=== PATIENT | female | born 1965 ===

== ENCOUNTER 2023-10-27 08:22 | Emergency (ER) | payer OTHER, SELFPAY ==
[2023-10-27] VITALS (7 sets, daily range): BP systolic 101–134; BP diastolic 47–81; PULSE 80; O2SAT 97; BMI 41.3
--- NOTE | 2023-10-27 09:06 | EDRN ---
KATIE Knight was at bedside. at 09:01 pt had run of tachycardia, narrow complex.
--- NOTE | 2023-10-27 09:06 | ED.GENMED ---
History of Present Illness
General
Chief Complaint: Dizziness
Source: patient
Time Seen by Provider: 10/27/23 08:48
History of Present Illness
History of Present Illness:
58-year-old female presents with intermittent episodes of dizziness starting 2 weeks ago. She notes a spinning sensation. She denies any significant headache or neck pain. No double vision blurry vision loss of vision. She denies any unilateral
numbness or weakness but does note bilateral arms feel weak at times. She occasionally notes a fast heart rate. No leg swelling or calf pain. She feels as though the dizziness is made worse with change of positions but does tend to fade away if
she stays still. Occasionally happens while driving. No fevers rashes or tick bites.
Past History
Past History
ED Past Medical History: GERD
Social History
Tobacco: Non-smoker
Alcohol: None
Drug: None
Personal:
Living: with family
Phy Exam
Physical Exam
Physical Exam:
General: Well-appearing female no acute respiratory distress
HEENT: Normocephalic atraumatic
Heart: Regular rate and rhythm no murmurs please note, during the exam there is a approximately 10 seconds. Of a narrow complex regular tachycardia. This self resolved
Lungs: Clear no wheeze or rales
Extremities: No cyanosis or edema
Neurologic: Alert and oriented no facial asymmetry or slurred speech extract motions are intact finger-nose intact. Hallpike maneuver does reproduce his dizziness more so to the right side this quickly fades after about 3 seconds.
Scores
[id number] Score for Afib Stroke Risk
Age in Years (65=0, 65-74=1, >/=75=2): <65
Sex (Female=+1): Female
Congestive Heart Failure History (Yes=+1): No
Hypertension History (Yes=+1): No
Stroke/TIA/Thromboembolism History (Yes=+2): No
Vascular Disease History (Yes=+1): No
Diabetes Mellitus (Yes=+1): No
Score: 1
Anticoagulation Recommendations: Consider anticoagulation (as validated in nonvalvular fib)
Course
Orders/Labs/Results
Orders:
Orders
10/27/23 08:24
ECG [Electrocardiogram (*1)] Urgent
Reason for Study: Vertigo / Dizzy
EKG- Treatment ONCE
10/27/23 09:06
CT Head W/o Iv Contrast Urgent
Comment:
Reason For Exam: dizziness
10/27/23 09:19
Complete Blood Count/With Diff Urgent
Comprehensive Metabolic Panel Urgent
TSH Reflex To Free T4 Urgent
Troponin I Urgent
10/27/23 11:17
PT Consult [Pt Eval And Treat] Urgent
Treatment: vestibular eval
Activity Level: Ambulate
10/27/23 12:28
Meclizine [Antivert] 25 mg PO NOW STA
Abnormal Lab Results
10/27/23
09:19
MPV 11.4 H fL
(7.4-10.4)
Absolute Neuts (auto) 7.0 H 10^3/uL
(1.4-6.5)
Lymphocytes % 19.2 L %
(20.5-51.1)
BUN 19 H mg/dl
(7-17)
10/27/23 09:19
10/27/23 09:19
Vital Signs
Initial and Last Documented VS:
Initial Vital Signs
Temp Pulse Resp BP Pulse Ox
98.5 F 76 18 134/80 100
10/27/23 08:23 10/27/23 08:23 10/27/23 08:23 10/27/23 08:23 10/27/23 08:23
Last Documented Vital Signs
Temp Pulse Resp BP Pulse Ox
98.5 F 62 14 116/81 98
10/27/23 08:23 10/27/23 14:00 10/27/23 14:00 10/27/23 13:00 10/27/23 14:00
MDM/Problems Addressed
Differential Diagnosis Includes:
Dizziness. Consider vertigo versus arrhythmia versus electrolyte abnormality.
She has history of hypothyroidism. Will check TSH. Rhythm strip does show a brief episode of narrow complex regular tachycardia. Patient recently handed in a Holter monitor last week and has not heard any results. She follows with a vehicle upholsterer
through [facility]
Will check labs. CT head pending. Keep on monitor.
*Critical Care Note
Total Time (30-74mins, 75-104mins- exclusive of procedures): Not Applicable
Update Note
Update Note:
CT head negative. Patient evaluated by physical therapy. She my exam does have reproducible dizziness with turning her head. Patient does have intermittent episodes of a tachycardia. This could be atrial fibrillation. Discussed with emergency
room attending as well as cardiology. Patient feeling better after meclizine. Will start low-dose aspirin and Toprol until she follows up with her vehicle upholsterer. Stable for discharge
ED Attending Note
-
Portions of this chart may have been created with voice recognition software.� Occasional wrong word or��sound alike� substitutions may have occurred due to the inherent limitations of voice recognition software.
Discharge Plan
Departure
Patient Disposition: Home (Routine Discharge)
Date of Disposition: 10/27/23
Time of Disposition: 14:09
Patient with high blood pressure during this ER visit?: No
Discharge Problem:
Dizziness
Instructions: Atrial fibrillation, Vertigo (a Type of Dizziness) (DC)
Prescriptions:
New
metoprolol succinate [Toprol XL] 25 mg tablet extended release 24 hr
12.5 mg PO DAILY Qty: 30 0RF
Referrals:
Durga Rivera Jr., DO [Family Provider] -
Activity Restrictions/Additional Instructions:
Start a baby aspirin daily. Take Toprol as directed. Return if worse otherwise follow-up with your vehicle upholsterer
Interventions
Interventions:
*Risk Screen - Suicide Last Done: 10/27/23 08:23
*General Assessment Last Done: 10/27/23 08:23
*Neglect/Abuse Screening Last Done: 10/27/23 08:23
ED- Fall Risk Assessment Last Done: 10/27/23 12:23
*ED COVID-19 Vaccine History Last Done: 10/27/23 08:23
ED- Neurological Assessment Last Done: 10/27/23 12:23
ED- Cardiac Assessment Last Done: 10/27/23 12:23
ED Swallowing Screen Last Done: 10/27/23 12:23
Discharge Date and Time
Print Language: HUNGARIAN
[2023-10-27 09:41] LABS: % Basophils 0.5 % (0-2); % Eosinophils 2.1 % (0-6); % Immature Granulocytes 0.3 % (0-0.5); % Lymphocytes 19.2 % (20.5-51.1); % Monocytes 6.6 % (1.7-9.3); % Neutrophils 71.3 % (42.2-75.2); Absolute Basophils 0.1 10^3/uL (0-0.2); Absolute Eosinophils 0.2 10^3/uL (0-0.7); Absolute Lymphocytes 1.9 10^3/uL (1.2-3.4); Absolute Monocytes 0.6 10^3/uL (0.1-0.6); Hematocrit 42.8 % (37.0-47.0); Hemoglobin 14.5 g/dL (12.0-16.0); Mean Corp Hgb Conc. 33.9 g/dL (33.0-37.0); Mean Corpuscular Volume 85.6 fL (81.0-99.0); Mean Platelet Volume 11.4 fL (7.4-10.4); Nucleated Red Blood Cells % 0 %; Platelet Count 236 10^3/uL (130-400); Red Cell Dist. Width 13.2 % (11.5-14.5); White Blood Cell Count 9.7 10^3/uL (4.8-10.8)
[2023-10-27 09:54] LABS: ALT (SGPT) 19 U/L (0-35); AST (SGOT) 20 U/L (14-36); Albumin 4.3 g/dl (3.5-5.0); Alkaline Phosphatase 123 U/L (38-126); Blood Urea Nitrogen 19 mg/dl (7-17); Calcium 9.8 mg/dl (8.4-10.2); Carbon Dioxide 30 mmol/L (22-30); Chloride 105 mmol/L (98-107); Estimated Creatinine Clearance 78 ml/min; Glucose 98 mg/dl (70-99); Potassium 4.4 mmol/L (3.5-5.1); Sodium 140 mmol/L (135-145); eGFR > 60.00
[2023-10-27 10:03] LABS: Troponin I < 0.012 ng/ml
[2023-10-27] MEDS: ANTIVERT 25 MG PO (12:34)
[2023-10-27 13:38] LABS: TSH Reflex To Free T4 2.36 uIU/ml (0.47-4.68)
== END 2023-10-27 14:24 | disposition home or self-care (01) ==
LOC: EMR 08:22
PROVIDERS: Physician Assistant; EMERGENCY PHYSICIAN Emergency Medicine; FAMILY PHYSICIAN Family Medicine
DX: R42 Dizziness and giddiness (principal); K21.9 Gastro-esophageal reflux disease without esophagitis
CPT/HCPCS: 99284; 70450; 80053; 84443; 84484; 85025; 93005